=== PATIENT | male | born 1985 | race Caucasian/White ===

== ENCOUNTER → 2016-11-01 | Outpatient (CLI) | payer OTHER ==
--- NOTE | 2016-11-02 16:09 | DIAGNOSTIC IMAGING REPORT ---
CT OF THE SINUSES WITHOUT CONTRAST FUSION PROTOCOL CLINICAL HISTORY: Chronic sinusitis. Left middle turbinate polyposis. Right septal deviation. COMPARISON STUDY: No previous studies for comparison. TECHNIQUE: Axial images of the sinuses were obtained without IV contrast according to the Fusion protocol. Sagittal and coronal reconstructions were viewed. FINDINGS: Visualized portions of the intracranial contents are unremarkable on this unenhanced exam. Orbits are within normal limits. Cribriform plate is intact. Note is made of mild rightward deviation of the nasal septum. There is moderate polypoid mucosal thickening within the nasal cavity as well as the left maxillary sinus. Hyperdense secretions within the left maxillary sinus are present. There is mild mucosal thickening of the left frontal and ethmoid sinuses. Nodularity is most pronounced along the left middle turbinate with bony remodeling. There is a darien bullosa of the right middle turbinate. There is significant thinning of the bony nasal septum with possible defect. The left ostiomeatal complex is occluded. The right is patent. IMPRESSION: 1. Moderate polypoid mucosal thickening of the nasal cavity and sinuses, most evident along the left middle turbinate with bony irregularity. The findings favor sinonasal polyposis. Other etiologies such as Juan's granulomatosis could appear similar although is considered less likely. 2. Significant thinning of the bony nasal septum with possible defect. 3. Mild rightward deviation of the nasal septum. 4. Occluded left ostiomeatal complex. Electronically signed by: Jack De León M.D. 11/02/2016 4:08 PM Dictated Date/Time: 11/01/2016 3:24 PM
== END | disposition home or self-care (01) ==
LOC: C.CTS 15:03
DX: J32.9 Chronic sinusitis, unspecified (principal); J34.89 Other specified disorders of nose and nasal sinuses; J34.2 Deviated nasal septum

== ENCOUNTER → 2016-12-09 | Outpatient (CLI) | payer OTHER ==
--- NOTE | 2016-12-10 06:25 | SPLIT NIGHT TECHNICIAN REPORT ---
[facility] Split Night Polysomnogram - Last Code Striper Report Study date: 12/09/2016 Referring Physician: Foster Bagley MD Name: MADISONBREEZY JUAREZ Last Code Striper: Bre Box [facility] [email or web address] Date of : 1985 Height: 31 years, Height 6' 0" Sex: Male Weight: 213 lbs Age: 31 BMI: Medications: 28.88 Patient History 31 yr. old male here for a possible split night sleep study. Patient complains on loud snoring. He has significant tonsillar hypertrophy, right septal deviation and turbinate hypertrophy. Patients [place] sleepiness scale score is between 8 and 14out of 24. Parameters Monitored NPSG: E1-M2, E2-M1, Fp1-M2, Fp2-M1, F3-M2, F4-M2, F4-M1, C3-M2, C4-M2, C4-M1, O1-M2, O2-M2, O2-M1, T3-M2, T4-M1, P3-M2, P4-M1, CHIN1, CHIN2, HR, EKG, Legs, PFLOW, SNOR, FLOW, CFLOW, Tidal Volume, THOR, ABDO, SpO2, PLTH, CPRESS, ETCO2 Wave, ETCO2, pH SLEEP SUMMARY DATA DIAGNOSTIC TREATMENT Lights Out: 10:58:47 PM 2:05:17 AM Lights On: 2:01:17 AM 5:29:47 AM Total Recording Time (TRT): 182.5 min. 204.5 min. Total Sleep Time (TST): 117.0 min. 173.0 min. NREM Time: 93.0 min. 144.0 min. REM Time: 24.0 min. 29.0 min. Sleep Period Time (SPT): 172.0 min. 183.5 min. Sleep Efficiency (SE): 64 % 85 % Sleep Latency: 10.5 min. 11.0 min. Arousal Index: 10.3 3.8 PAP Treatment Levels: 5, 7, 9, 11 * Optimal Pressure(s) SLEEP STAGING DATA DIAGNOSTIC TREATMENT Duration (min) TST % Duration (min) TST % Stage Wake: 65.5 min. -- 31.5 min. -- WASO: 55.0 min. -- 10.5 min. -- NREM: 93.0 min. 79 % 144.0 min. 83 % Stage N1: 11.5 min. 10 % 9.5 min. 5 % Stage N2: 81.5 min. 70 % 88.5 min. 51 % Stage N3: 0.0 min. 0 % 46.0 min. 27 % REM: 24.0 min. 21 % 29.0 min. 17 % POSITIONAL DATA Event Count Index Event Count Index Supine: 0 0.0 24 32.4 Supine NREM: 0 0.0 24 32.4 Supine REM: N/A N/A N/A N/A Non-Supine: 110 57.8 24 11.2 Non-Supine NREM: 87 57.9 24 14.5 Non-Supine REM: 23 57.5 0 0.0 AROUSAL SUMMARY DATA: Event Count Index Event Count Index Apnea Arousals: 8 21.0 1 10.1 Hypopnea Arousals: 4 2.1 4 1.4 Snore Arousals: 8 4.1 2 0.7 PLM Arousals: 0 0.0 3 1.0 Non-Specific Arousals: 2 1.0 2 0.7 Total Arousals: 20 10.3 11 3.8 MYOCLONUS (PLM) Event Count Index Event Count Index PLM: 0 0.0 33 11.4 PLM AROUSAL: 0 0.0 3 1.0 PLM W/O AROUSAL 0 0.0 30 10.4 PLM W/RESP EVENT 0 0.0 0 0.0 MYOCLONUS (PLM) Event Count Index Event Count Index LM: 0 1.5 16 5.5 LM AROUSAL: 0 0.0 2 0.7 LM W/O AROUSAL LM W/RESP EVENT LM NON SPECIFIC 1 0.5 44 15.3 HEART RATE DATA DIAGNOSTIC TREATMENT Sleep (bpm): 65 68 REM (bpm): 87 95 NREM (bpm): 92 94 Tachycardia Count: 0 0 Tachycardia Duration: 0.00 0 Bradycardia Count: 0 0 Bradycardia Duration: 0.00 0 DIAGNOSTIC PORTION TREATMENT PORTION RESPIRATORY DATA Event Count Index Event Count Index AHI: -- 56.4 -- 16.6 RDI: -- 56.4 -- 17 Obstructive Apnea: 26 13.3 29 10.1 Central Apnea: 1 0.5 0 0.0 Mixed Apnea: 14 7.2 0 0.0 Hypopnea: 69 35.4 19 6.6 RERA: 0 0.0 0 0.0 Total Apneas: 41 21.0 29 10.1 RESPIRATORY DATA REM NREM SLEEP REM NREM SLEEP Supine Position: Obstructive Apneas: N/A 0 0 N/A 15 15 Central Apneas: N/A 0 0 N/A 0 0 Mixed Apneas: N/A 0 0 N/A 0 0 Hypopneas: N/A 0 0 N/A 9 9 RERA N/A 0 0 N/A 0 0 Total Supine Events: N/A 0 0 N/A 24 24 Supine AHI: N/A 0.0 0.0 N/A 32.4 32.4 Supine RDI: N/A 0.0 0.0 N/A 32.4 32.4 REM NREM SLEEP REM NREM SLEEP Non-Supine Position: Obstructive Apneas: 7 19 26 0 14 14 Central Apneas: 0 1 1 0 0 0 Mixed Apneas: 1 13 14 0 0 0 Hypopneas: 15 54 69 0 10 10 RERA 0 0 0 0 0 0 Total Supine Events: 23 87 110 0 24 24 Supine AHI: 57.5 57.9 57.8 0.0 14.5 11.2 Supine RDI: 57.5 57.9 57.8 0.0 14.5 11.2 OXYGEN DESTAURATION DATA: Event Count Index Event Count Index REM Desaturations: 18 45.0 0 0.0 NREM Desaturations: 82 52.9 42 17.5 SNORE DATA DIAGNOSTIC TREATMENT Snore Time: 5.5 2:16:17 AM Snore TST%: 5 6 Snore Arousal Count: 8 2 Snore Arousal Index: 4.1 0.7 Desaturation Event Summary: Minimum %SpO2 Event Count Mean/Min/Max Duration(sec.) Desaturation Index % Time In Bed > 90 146 29.5 / 10.8 / 59.0 26.0 87.1 86 - 90 2 13.5 / 9.3 / 17.8 3.1 10.1 81 - 85 0 N/A 0.0 1.7 76 - 80 0 N/A 0.0 0.8 71 - 75 0 N/A 0.0 0.2 66 - 70 0 N/A 0.0 0.1 61 - 65 0 N/A 0.0 0.0 56 - 60 0 N/A 0.0 0.0 51 - 55 0 N/A 0.0 0.0 < 50 0 N/A 0.0 0.0 OXYGEN SATURATION DATA DIAGNOSTIC TREATMENT SpO2 Mean Sleep: 91 % 94 % SpO2 Mean REM: 87 % 95 % SpO2 Mean NREM: 92 % 94 % SpO2 Minimum Sleep: 69 % 89 % SpO2 Minimum REM: 69 % 93 % SpO2 Minimum NREM: 83 % 89 % Time Below 90% (TST): 32.4 1.1 Time Below 88% (TST): 15.9 0.0 Total REM NREM Awake <50% 0.0 min. 0.0 min. 0.0 min. 0.0 min. 51 - 60% 0.0 min. 0.0 min. 0.0 min. 0.0 min. 61 - 70% 0.3 min. 0.3 min. 0.0 min. 0.0 min. 71 - 80% 4.1 min. 4.1 min. 0.0 min. 0.0 min. 81 - 90% 45.5 min. 9.4 min. 33.5 min. 2.6 min. 91 - 100% 336.9 min. 39.2 min. 203.5 min. 94.2 min. Average 93 92 93 94 Minimum SpO2 69 69 83 83 Desaturation Event Index 22.8 20.4 31.4 4.9 # Desat. Events below 89% 66 18 46 2 Time(%) with Saturation below 89% 6.1 3.0 2.8 0.3 Time(min.) with Saturation below 89% 23.8 11.6 11.0 1.2 Recording Last Code Striper Comments: Mr. Quinn slept in the right, left, and supine positions. No cardiac arrhythmia or PLMs noted. No bruxism noted. Snoring was noted and scored as a 4 on a scale of 0 through 5. (0=no snoring, 5=snoring loud enough to be heard through a closed door or down the becerra way) At 2:05 am ,Mr. Quinn met specific Split-Night criteria during the diagnostic portion of this study. CPAP was initiated at +5 CMH2O room air and up-titrated to an optimal level of + 11 CMH2O Cflex 2, which nearly eliminated all respiratory events and snoring. A large [employer] Simplus was used during titration. Mr. Quinn did not wake to use the restroom during the night. Mr. Quinn stated,I did not sleep with the mask on. The final report will be interpreted and signed by a sleep physician. The completed physician report will then be placed in the patient medical record. Therapy Event: Therapy (cm H20) 0 5 7 9 11 Total Time at Pressure (min.) 182.5 20.3 11.4 18.1 154.7 TST at Pressure (min.) 117.0 8.3 10.9 16.6 137.2 # Periods 1 1 1 1 1 Sleep Onset (min.) 10.5 11.0 0.0 0.0 0.0 REM Onset (min.) 157.5 N/A N/A N/A 39.7 Sleep Efficiency % 64 40 95 91 88 Wakefulness (%) 35.9 59.2 4.4 8.3 11.3 Wakefulness (min.) 65.5 12.0 0.5 1.5 17.5 NREM 1 (%) 6.3 24.7 0.0 5.5 2.3 NREM 1 (min.) 11.5 5.0 0.0 1.0 3.5 NREM 2 (%) 44.7 16.1 95.6 86.2 38.0 NREM 2 (min.) 81.5 3.3 10.9 15.6 58.7 NREM 3 (%) 0.0 0.0 0.0 0.0 29.7 NREM 3 (min.) 0.0 0.0 0.0 0.0 46.0 REM (%) 13.2 0.0 0.0 0.0 18.7 REM (min.) 24.0 0.0 0.0 0.0 29.0 # Arousals 20 2 0 3 6 Arousal Index 10.3 14.5 0.0 10.8 2.6 # Snore 289 2 17 78 304 Snore Index 148.2 14.5 93.7 281.8 132.9 AHI 56.4 36.3 88.2 90.3 0.9 AHI Supine 0.0 N/A N/A 95.9 3.9 AHI Non-Supine 57.8 36.3 88.2 63.2 0.0 NREM AHI 56.1 36.3 88.2 90.3 1.1 REM AHI 57.5 N/A N/A N/A 0.0 RDI 56.4 36.3 88.2 90.3 0.9 # Obstructive 26 3 11 15 0 # Central Ap 1 0 0 0 0 # Mixed 14 0 0 0 0 # Hypopneas 69 2 5 10 2 RERAS 0 0 0 0 0 Total Respiratory Events 110 5 16 25 2 Time Below SpO2 89.00% (min.) 22.6 0.0 0.0 0.0 0.0 Mean NREM SpO2 (%) 92 94 93 93 95 Mean REM SpO2 (%) 87 N/A N/A N/A 95 Mean Sleep SpO2 (%) 91 94 93 93 95 Min NREM SpO2 (%) 83 90 89 89 91 Min REM SpO2 (%) 69 N/A N/A N/A 93 Position Supine (min.) 2.9 0.0 0.0 13.8 30.7 Position Non-supine (min.) 114.1 8.3 10.9 2.8 106.5 LM Index Sleep 1.5 0.0 5.5 7.2 20.1 LM Index NREM 0.6 0.0 5.5 7.2 23.8 LM Index REM 5.0 N/A N/A N/A 6.2 Mean Heart Rate (bpm) 65 65 65 64 69 Min Heart Rate (bpm) 58 61 60 59 58
--- NOTE | 2016-12-17 14:50 | POLYSOMNOGRAPH REPORT ---
CLINICAL DATA: The patient is a 31-year-old male who has a BMI of 28.88. His complaints were those of loud snoring, headaches, and excessive daytime somnolence. His [place] sleepiness scale score is between 8 and 13 out of a possible 24. An in-lab split night study was done. SLEEP ARCHITECTURE: During the diagnostic portion of the study, the sleep period time was 172.0 minutes. The total sleep time was 117 minutes. The sleep efficiency was moderately reduced to 64%. The sleep latency was normal at 10.5 minutes. The arousal index was 10.3. Sleep consisted of stage N1 10%, stage N2 70%, stage REM 21%. During the therapeutic portion of the study when the patient was treated with nasal CPAP, the total sleep period was 183.5 minutes and the total sleep time was 173.0 minutes. The sleep efficiency was 85%. The sleep latency was 11 minutes. The arousal index was decreased to 3.8. During the therapeutic portion of the study, sleep consisted of stage N1 5%, stage N2 51%, stage N3 27%, and stage REM 17%. AROUSAL DATA: During the diagnostic portion of the study, the patient had 20 arousals including 8 apnea arousals, 4 hypopnea arousals, 8 snoring arousals, and 2 nonspecific arousals. The arousal index was 10.3 events per hour. During the therapeutic portion of the study, the patient had 11 arousals including 1 apnea arousal, 4 hypopnea arousals, 2 snoring arousals, 3 PLM arousals, and 2 nonspecific arousals. The arousal index was 3.8. PLM DATA: During the diagnostic portion of the study, the patient had no periodic limb movements. During the therapeutic portion, he had a total of 33 periodic limb movements for an index of 11.4. Three of these had arousals for a PLM arousal index of 1.0. EKG: The underlying cardiac rhythm was normal sinus. The cardiac rates ranged from 65-94 beats per minute. No arrhythmias were noted. RESPIRATORY DATA: During the diagnostic portion of the study, the patient had a total of 41 apneas including 26 obstructive apneas, 1 central apnea, and 14 mixed apneas. In addition, he had 69 hypopneas utilizing the 4% rule for scoring. The apnea hypopnea index was severely elevated at 56.4 events per hour and was consistent with severe sleep apnea. During the therapeutic portion of the study when the patient was treated with nasal CPAP, he had a total of 29 obstructive apneas and 19 hypopneas. The apnea hypopnea index was 16.6 events per hour. It is notable that at the final pressure of 11 cm, the patient was treated for a total of 154.7 minutes and he had an apnea hypopnea index of only 0.9 events per hour. OXIMETRY DATA: During the diagnostic portion of the study, the mean saturation was 91%. The minimum saturation was 69%. 15.9% was less than 88%. During the therapeutic portion of the study, the mean saturation was 94%. The minimum saturation was 89%. There was 0% less than 88%. MACHINE WASHER'S COMMENTS: The patient slept in the right, left, and supine positions. No cardiac arrhythmia or PLMs were noted. No bruxism noted. Snoring was noted and scored as a 4 on a scale of 0 through 5. At 2:05 a.m., Mr. Quinn met specific split night criteria during the diagnostic portion of the study. Severe sleep apnea was noted. CPAP was initiated at 5 cm of water and uptitrated to an optimal level of 11 cm water with C-Flex 2. This nearly eliminated all respiratory events and snoring. A large [employer] Simplus mask was used during the titration. IMPRESSION: Obstructive sleep apnea -- severe -- resolved with nasal CPAP at 11 cm. COMMENTS: The patient had a split study done because he had severe sleep apnea during the diagnostic portion of the study. He had a decreased sleep efficiency during the diagnostic portion with severe hypoxemia. He was treated with nasal CPAP at a final pressure of 11 cm. The patient had a significant increase in stage N3 sleep during the CPAP titration. His sleep efficiency also improved. His oxygenation normalized compared with the diagnostic study. There was good resolution of sleep disordered breathing. Somewhat surprisingly however, during the post sleep questionnaire, the patient indicated that he did not sleep with the mask on. RECOMMENDATIONS: 1. Strong consideration is given to treatment with nasal CPAP at 11 cm in light of the above results. 2. If nasal CPAP is ordered, it would be advised that he have a [employer] Simplus mask size large. 3. Followup is deferred to Dr. Foster Bagley who referred the patient. The patient is known to have tonsillar hypertrophy. Thus, the possibility of surgical therapy could be considered and is deferred to Dr. Bagley. 4. The patient could be referred for a sleep evaluation if desired. NEALD
== END | disposition home or self-care (01) ==
LOC: C.NEUR 20:00
DX: J32.9 Chronic sinusitis, unspecified (principal); J34.2 Deviated nasal septum; G47.33 Obstructive sleep apnea (adult) (pediatric); R06.83 Snoring

== ENCOUNTER 2017-03-22 10:10 | Inpatient (IN) | payer OTHER ==
[2017-02-13 12:54] LABS: BASO % 0.7 %; BASO ABS # 0.05 K/uL (0-0.2); COMPLETE YES; EOS % 6.4 %; HEMATOCRIT 44.8 % (42-52); IG% 0.1 %; LYMPH % 40.6 %; LYMPH ABS # 2.86 K/uL (1.2-3.4); MEAN CELL VOLUME 89.1 fL (80-100); MEAN CORPUSCULAR HGB CONC 34.8 g/dl (32-36); MEAN PLATELET VOLUME 11.2 fL (7.4-10.4); MONO % 9.1 %; NEUT % 43.1 %; PLATELET COUNT 186 K/uL (130-400); RED BLOOD COUNT 5.03 M/uL (4.7-6.1); WHITE BLOOD COUNT 7.04 K/uL (4.8-10.8)
[2017-03-22] VITALS (7 sets, daily range): BP systolic 112–124; BP diastolic 63–79; PULSE 66–92; TEMP 36.6–37; O2SAT 96–98; Ht 182.9 cm; Wt 101.1 kg
[~2017-03-22] VITALS: Ht 182.9 cm; Wt 101.1 kg
[~2017-03-22 10:10] MED LIST: CEFAZOLIN 2000 MG/60 ML D5W IV SCH; LACTATED RINGER'S 1000ML 1,000 ML IV SCH; OXYMETAZOLINE HCL 0.05% NA SPR 15 ML BTL NAE SCH
--- NOTE | 2017-03-22 10:35 | History and Physical ---
History & Physical Date Mar 22, 2017. Chief Complaint MIRI, CHRONIC SINUSITIS, TONSILLAR HYPERTROPHY WITH RECURRENT ACUTE TONSILLITIS AND OROPHARYNGEAL DYSPHAGIA History of Present Illness The patient is a 32 year old male with H/O SEVERE MIRI WITH AHI 56.4 WITH TONSILLAR HYPERTROPHY WITH H/O RECURRENT ACUTE TONSILLITIS AND OROPHARYNGEAL DYSPHAGIA. PT ALSO WITH CHRONIC SINUSITIS UNRESPONSIVE TO MAXIMAL MEDICAL THERAPY. PT S/P SEPTOPLASTY AND INFERIOR TURBINATE REDUCTION SURGERY IN CONCEPCION BUT CONTINUES TO HAVE R>L DNS AND B ITH. Past Medical/Surgical History PMH: SEVERE MIRI PSH: S/P CLOSED REDUCTION NASAL FX; S/P SEPTOPLASTY AND BILATERAL INFERIOR TURBINATE REDUCTION Additional History Hepatic Disease: No Endocrine Disorder: No Kidney Disease: No Hypertension: No Heart Disease: No Bleeding Tendencies: No Infectious Diseases: No Allergies Coded Allergies: Cat Dander (Verified Allergy, Unknown, HAY FEVER, EYES SWELL, 02/13/17) NO KNOWN DRUG ALLERGIES (Verified Allergy, Unknown, NKDA, 02/13/17) Home Medications No Active Prescriptions or Reported Meds Physical Examination Skin: warm/dry, no rash Eyes: normal inspection, EOMI, sclerae normal ENT: + pertinent finding (4+ TONSILS, R>L DNS, B ITH) Head: normocephalic, atraumatic Neck: supple, no adenopathy, trachea midline Respiratory/Chest: lungs clear, normal breath sounds, no respiratory distress Cardiovascular: regular rate, rhythm, no edema, no murmur Neurologic/Psych: no motor/sensory deficits, alert, normal reflexes, oriented x 3 Diagnosis MIRI, TONSILLAR HYPERTROPHY, CRS, R>L DNS, B ITH Plan of Treatment TONSILLECTOMY, IMAGE-GUIDED B FESS AND INFERIOR TURBINATE REDUCTION, POSSIBLE REVISION SEPTOPLASTY
[2017-03-22] MEDS ORDERED: MIDAZOLAM HCL 1 MG/ML 2ML VIAL ONE (12:30)
[2017-03-22] MEDS ORDERED: FENTANYL CITRATE INJ 50 MCG/1 ML 2 ML VIAL ONE ×2 (12:30→15:04)
--- NOTE | 2017-03-22 14:36 | History & Physical Bridge Note ---
H&P Re-Evaluation Bridge Note: I have examined the patient, reviewed the History & Physical and in the interval since the performance of the History & Physical I have noted the following changes of clinical significance: PATIENT HAS ELECTED TO STAGE HIS SURGERIES WITH TONSILLECTOMY ALONE TODAY FOLLOWED BY HIS SINONASAL SURGERY IN ~ 6 WEEKS. WILL STILL WATCH OVERNIGHT DUE TO SEVERE MIRI.
[2017-03-22] MEDS ORDERED: BACITRACIN OINT 15 GM TUBE ONE (14:40)
[2017-03-22] MEDS ORDERED: LIDOCAINE HCL 2% JELLY 30 ML TUBE EXT ONE (14:46)
[2017-03-22] MEDS ORDERED: SUCCINYLCHOLINE CHLORIDE 20 MG/ML 10 ML VIAL IV ONE (15:12)
[2017-03-22] MEDS ORDERED: PROPOFOL IV EMULSION 10 MG/ML 20 ML VIAL IV ONE (15:12)
[2017-03-22] MEDS ORDERED: ONDANSETRON INJ 2 MG/ML 2 ML VIAL ONE (15:12)
[2017-03-22] MEDS ORDERED: ROCURONIUM BROMIDE 10 MG/ML 5 ML VIAL ONE (15:12)
[2017-03-22] MEDS ORDERED: LIDOCAINE HCL 2% 2 ML VIAL (20MG/ML) ONE (15:12)
[2017-03-22] MEDS ORDERED: NEOSTIGMINE METHYLSULFATE 5 MG/5 ML SYR ONE (15:12)
[2017-03-22] MEDS ORDERED: DEXAMETHASONE SOD INJ 4 MG/ML VIAL ONE (15:12)
[2017-03-22] MEDS ORDERED: GLYCOPYRROLATE INJ 0.2 MG/ML VIAL ONE (15:12)
[2017-03-22] MEDS ORDERED: LIDOCAINE VISCOUS 2% 100ML TOP ONE (15:24)
[2017-03-22] MEDS ORDERED: EpHEDrine SULFATE INJ 50 MG/ML AMP IV PRN (15:30)
[2017-03-22] MEDS ORDERED: ATROPINE SULFATE 0.1 MG/ML 5ML SYR IV PRN (15:30)
[2017-03-22] MEDS ORDERED: ONDANSETRON INJ 2 MG/ML 2 ML VIAL IV PRN ×2 (15:30→15:45)
[2017-03-22] MEDS ORDERED: FENTANYL CITRATE INJ 50 MCG/1 ML 2 ML VIAL IV PRN (15:30)
[2017-03-22] MEDS ORDERED: PROMETHAZINE HCL INJ 6.25 MG in SODIUM CHLORIDE 0.9% 50ML 50 ML IV PRN (15:30)
[2017-03-22] MEDS ORDERED: LACTATED RINGER'S 1000ML 1,000 ML IV SCH (15:33)
--- NOTE | 2017-03-22 15:39 | Discharge Instructions ---
Discharge Instructions Date of Service Mar 22, 2017. Admission Reason for Admission: Henry, Tonsillar Hypertrophy, Septal Deviation, Hype Discharge Discharge Diagnosis / Problem: SAME Discharge Goals Goal(s): Therapeutic intervention Activity Recommendations Activity Limitations: as noted below 1. LIGHT ACTIVITY FOR 2 WEEKS 2. NO DRIVING WHILE ON LORTAB 3. NO LIFTING > OR 15LBS FOR 2 WEEKS . Current Hospital Diet Patient's current hospital diet: Full Liquid Diet Discharge Diet Recommended Diet: Full Liquid Diet Diet Texture: Mechanical Soft (ground) Procedures Procedures Performed: Tonsillectomy Pending Studies Studies pending at discharge: no Medical Emergencies . Who to Call and When: Medical Emergencies: If at any time you feel your situation is an emergency, please call 911 immediately. . Non-Emergent Contact Non-Emergency issues call your: Surgeon . . "Provider Documentation" section prepared by Foster Bagley. . VTE Core Measure Inpt VTE Proph given/why not?: SCD's
--- NOTE | 2017-03-22 15:53 | [facility] Operative Report ---
Operative Report Operative Date Mar 22, 2017. Pre-Operative Diagnosis Obstructive Sleep Apnea, Tonsillar Hyperthrophy Post-Operative Diagnosis Same as preoperative diagnosis Procedure(s) Performed Tonsillectomy Surgeon Dr. Bagley Group Exercise Class Instructor Surgeon(s) None Estimated Blood Loss 5ml Findings 1. 4+ hypertrophied tonsils with very narrowed oropharyngeal airway as a result Specimens a. right tonsil collected at 1519 b. left tonsil collected at 1526 Anesthesia Gen. endotracheal Complication(s) None Disposition Recovery Room / PACU Indications The patient is a very pleasant 32-year-old male with a history of severe obstructive sleep apnea with apnea-hypopnea index of 56. He also has a history of recurrent acute tonsillitis. He had 4+ tonsil hypertrophy on physical examination with a narrowed oropharyngeal airway. In addition the patient has had problems with chronic rhinosinusitis and nasal airway obstruction. Originally he was scheduled to undergo image guided bilateral endoscopic sinus surgery, bilateral inferior turbinate reduction, possible revision septoplasty, and tonsillectomy; however, after careful discussion with the patient today we have both decided to stage his procedures and perform his tonsillectomy today and has sinonasal surgery in the near future. Description of Procedure After informed consent had been obtained from the patient, the patient was wheeled to the operating room and placed on the operating room table in supine position. Monitors were placed at after the induction of general endotracheal anesthesia, the table was turned 90 and the patient's head and neck were gently extended. Antibiotic ointment was applied to the lips and a mouthgag was carefully inserted, opened, and stabilized on a roll of towels. The palate was inspected and this was found to be normal. An Allis clamp was then used to grasp the right tonsil and the superior pole and Bovie electrocautery was used to remove the tonsil in the capsular plane with care to preserve the underlying mucosa and musculature of the anterior and posterior tonsillar pillars. Tonsil was then removed in a similar fashion. Intraoperative findings were 4+ tonsils with some tonsillith formation bilaterally. Of note there is also narrowed oropharyngeal airway which was markedly improved after the tonsillectomy. The tonsils were sent separately for permanent pathological assessment. The mouth gag was released for 1 minute. This was reopened and hemostasis was confirmed. An orogastric tube was placed and the stomach was suctioned free of air and stomach contents. 2% lidocaine jelly was placed into the bilateral tonsillar fossae for added anesthetic effect. This marked the end of the case. The patient tolerated the procedure well and there are no apparent complications. The patient was extubated and transferred to the recovery room in stable condition. I attest to the content of the Intraoperative Record and any orders documented therein. Any exceptions are noted below.
--- NOTE | 2017-03-22 16:45 | Anesthesiology Progress Note ---
Anesthesia Post Op Note Date & Time Mar 22, 2017 at 16:45 Vital Signs Pain Intensity: 0 Vital Signs Past 12 Hours Date Time Temp Pulse Resp B/P (MAP) Pulse Ox O2 Delivery O2 Flow Rate FiO2 03/22/17 16:27 63 9 125/77 94 03/22/17 16:27 63 9 03/22/17 16:22 60 6 03/22/17 16:22 60 6 98 03/22/17 16:21 121/83 03/22/17 16:17 60 12 03/22/17 16:17 60 12 98 03/22/17 16:16 125/79 03/22/17 16:12 60 8 99 03/22/17 16:12 60 8 03/22/17 16:11 127/80 03/22/17 16:07 66 12 100 03/22/17 16:07 66 12 03/22/17 16:06 127/84 03/22/17 16:02 66 11 03/22/17 16:02 65 11 100 03/22/17 16:01 128/88 03/22/17 16:01 128/88 03/22/17 16:00 65 11 03/22/17 16:00 68 11 96 03/22/17 16:00 68 11 96 03/22/17 16:00 65 11 03/22/17 15:57 124/85 03/22/17 15:57 124/85 03/22/17 15:55 66 11 03/22/17 15:55 67 11 100 03/22/17 15:55 67 11 100 03/22/17 15:55 66 11 03/22/17 15:54 36.1 71 16 132/86 99 Mask 10 03/22/17 15:51 135/89 03/22/17 15:51 135/89 03/22/17 15:50 75 16 100 03/22/17 15:50 75 16 100 03/22/17 15:50 76 16 03/22/17 15:50 76 16 03/22/17 15:46 132/86 03/22/17 15:46 132/86 03/22/17 15:45 78 6 03/22/17 15:45 78 6 99 03/22/17 15:45 78 6 99 03/22/17 15:45 78 6 03/22/17 10:49 36.6 84 20 124/63 (83) 97 Room Air Notes Mental Status: alert / awake / arousable, participated in evaluation Pt Amnestic to Procedure: Yes Nausea / Vomiting: adequately controlled Pain: adequately controlled Airway Patency, RR, SpO2: stable & adequate BP & HR: stable & adequate Hydration State: stable & adequate Anesthetic Complications: no major complications apparent
[2017-03-22] MEDS: ACETAMINOPHEN/HYDROCODONE ELIX 15 ML/CUP UDP PO PRN ×2 (19:15→23:18)
[2017-03-22] MEDS: AMOXICILLIN 500 MG/10 ML UDP PO SCH (21:38)
[2017-03-22] MEDS: DEXAMETHASONE INJ 10 MG in SYRINGE 0 ML IV SCH (21:39)
[2017-03-23] MEDS ORDERED: NURSING VERBAL MED ORDER ONE (01:45)
[2017-03-23] MEDS: ACETAMINOPHEN/HYDROCODONE ELIX 15 ML/CUP UDP PO PRN ×2 (03:30→08:25)
[2017-03-23 03:31] VITALS: BP 112/71; PULSE 87; TEMP 36.9; O2SAT 96
--- NOTE | 2017-03-23 05:20 | Discharge Summary ---
Discharge Summary Date of Service Mar 23, 2017. Discharge Summary Date of admission: 03/22/2017 Date of discharge: 03/23/2017 Admission diagnosis: Severe obstructive sleep apnea with tonsillar hypertrophy and recurrent acute tonsillitis with oropharyngeal dysphagia Discharge diagnosis: Same as above Hospital course: The patient is a pleasant 32-year-old male with a history of severe obstructive sleep apnea with an apnea hypotony index of 56.4 along with tonsillar hypertrophy and recurrent acute tonsillitis with oropharyngeal dysphagia. In addition the patient has chronic sinusitis, right greater than left septal deviation, and bilateral inferior turbinate hypertrophy despite having sinonasal surgery several times in his [place] of [facility]. Initially he was set up for tonsillectomy as well as image guided sinus surgery, revision septoplasty, and inferior turbinate reduction; however, the patient decided to undergo tonsillectomy alone and have his sinonasal surgery done at a later date. On 03/22/2017 he underwent tonsillectomy with intraoperative findings of 4+ tonsils bilaterally with significant oropharyngeal airway narrowing due to the tonsillar hypertrophy. Postoperatively he did very well. He was discharged home on postoperative day # 1 on the following medications: 1. Lortab 7.5 mg/325 mg/15 mL - 5-15 mL by mouth every 4 hours when necessary severe pain with 500 mL given, 2. Amoxicillin 400 mg/5 mL's - 10 mL's by mouth twice a day for 10 days, 3. Orapred 15 mg per 5 mL - 10 mL's by mouth twice a day for 5 days, then 5 mL by mouth twice a day for 2 days, then 5 mL by mouth daily for 2 days. He is to be on a soft diet for 2 weeks. He is to observe light activity for [address] weeks[address] not drive while on narcotics. Follow-up in the office in 1-2 weeks' time. We will schedule his sinonasal surgery sometime after 6 weeks recovery period.
--- NOTE | 2017-03-23 05:22 | Progress Note ---
Progress Note Date of Service Mar 23, 2017. Progress Note Patient is postoperative day #1 status post tonsillectomy with intraoperative findings of 4+ tonsils bilaterally. The patient has not had any postoperative problems. He has expected postoperative pain which is controlled on Lortab. Has not had any postoperative bleeding. On physical examination the patient is afebrile with vital signs are stable. Oral cavity and oropharyngeal examination reveals expected mild uvular edema and there is no evidence of bleeding within the tonsillar fossae. Patient is postoperative day #1 status post tonsillectomy for severe obstructive sleep apnea, recurrent acute tonsillitis, and oropharyngeal dysphagia. He'll be discharged this morning on a soft diet for 2 weeks and light activity for 2 weeks. He should follow up in 1-2 weeks' time in my office.
[2017-03-23] MEDS: DEXAMETHASONE INJ 10 MG in SYRINGE 0 ML IV SCH (05:46)
[2017-03-23] MEDS: AMOXICILLIN 500 MG/10 ML UDP PO SCH (05:46)
[2017-03-23 06:07] VITALS: BP 112/71; PULSE 87; TEMP 36.9; O2SAT 96
[2017-03-23 07:48] VITALS: BP 116/72; PULSE 84; TEMP 37.1; O2SAT 93
[2017-03-23 07:50] VITALS: O2SAT 93
--- NOTE | 2017-03-23 07:57 | Anesthesiology Progress Note ---
Anesthesia Post Op Note Date & Time Mar 23, 2017 at 07:57 Vital Signs Vital Signs Past 12 Hours Date Time Temp Pulse Resp B/P (MAP) Pulse Ox O2 Delivery O2 Flow Rate FiO2 03/23/17 07:50 93 Room Air 03/23/17 07:48 37.1 84 18 116/72 (87) 93 Room Air 03/23/17 06:07 36.9 87 17 96 Room Air 03/23/17 03:31 36.9 87 17 112/71 (85) 96 Nasal Cannula 2.0 03/22/17 23:30 97 Nasal Cannula 2.0 03/22/17 23:00 36.8 85 18 114/70 (85) 98 Nasal Cannula 2.0 Notes Mental Status: alert / awake / arousable, participated in evaluation Anesthetic Complications: no major complications apparent
[2017-03-23] MEDS ORDERED: PNEUMOCOCCAL POLYSACCHARIDES 25 MCG/0.5 ML VIAL/SYR IM. ONE (08:00)
[2017-03-23] MEDS ORDERED: PNEUMOCOCCAL ADMINISTRATION CHARGE ONE (08:00)
== END 2017-03-23 09:10 | disposition home or self-care (01) | DRG 134 ==
LOC: C.ACU 10:10 → C.MSN 10:40 → ENRESERV 16:12
PROC: 0CTPXZZ Resection of Tonsils, External Approach (ICD-10-PCS; principal; 2017-03-22 11:45)
DX: J35.1 Hypertrophy of tonsils (principal); R13.12 Dysphagia, oropharyngeal phase; J32.9 Chronic sinusitis, unspecified; G47.33 Obstructive sleep apnea (adult) (pediatric); I34.1 Nonrheumatic mitral (valve) prolapse; F17.210 Nicotine dependence, cigarettes, uncomplicated; E66.9 Obesity, unspecified; Z68.30 Body mass index [BMI] 30.0-30.9, adult

== ENCOUNTER → 2017-12-06 | Outpatient (CLI) | payer OTHER ==
--- NOTE | 2017-12-06 13:06 | DIAGNOSTIC IMAGING REPORT ---
CHEST 2 VIEWS ROUTINE CLINICAL HISTORY: Preoperative evaluation. COMPARISON STUDY: No previous studies for comparison. FINDINGS: Lung volumes are normal. No pneumothorax or pleural effusion is noted. Cardiac size is normal. Mediastinal contours are normal. There is no evidence for pulmonary edema. IMPRESSION: No acute cardiopulmonary findings. Electronically signed by: Jack De León M.D. 12/06/2017 1:05 PM Dictated Date/Time: 12/06/2017 1:04 PM
[2017-12-06 13:22] LABS: BASO % 0.4 %; BASO ABS # 0.03 K/uL (0-0.2); EOS % 2.6 %; EOS ABS # 0.19 K/uL (0-0.5); HEMATOCRIT 45.1 % (42-52); HEMOGLOBIN 15.8 g/dL (14.0-18.0); IG# 0.01 K/uL (0.00-0.02); LYMPH % 40.9 %; LYMPH ABS # 2.98 K/uL (1.2-3.4); MEAN CELL VOLUME 90.9 fL (80-100); MEAN CORPUSCULAR HEMOGLOBIN 31.9 pg (25-34); MEAN PLATELET VOLUME 11.3 fL (7.4-10.4); MONO % 8.2 %; NEUT % 47.8 %; NEUT ABS # 3.48 K/uL (1.4-6.5); PLATELET COUNT 201 K/uL (130-400); RED CELL DISTRIBUTION WIDTH CV 13.1 % (11.5-14.5); RED CELL DISTRIBUTION WIDTH SD 43.1 fL (36.4-46.3); WHITE BLOOD COUNT 7.29 K/uL (4.8-10.8)
[2017-12-06 13:34] LABS: PTT PATIENT 23.7 SECONDS (21.0-31.0)
[2017-12-06 13:50] LABS: POTASSIUM 3.6 mmol/L (3.5-5.1)
== END | disposition home or self-care (01) ==
LOC: C.RAD 12:31
DX: Z01.818 Encounter for other preprocedural examination (principal)

== ENCOUNTER → 2017-12-15 | Day surgery (SDC) | payer OTHER ==
[2017-08-08 10:48] VITALS: Ht 182.9 cm; Wt 100.0 kg
[~2017-12-15] VITALS: Ht 182.9 cm; Wt 100.0 kg
[~2017-12-15] MED LIST changes: +ATROPINE SULFATE 0.1 MG/ML 5ML SYR IV PRN; -CEFAZOLIN 2000 MG/60 ML D5W IV SCH; +CEFAZOLIN 2000MG IV PUSH 10 ML IV SCH; +CEFAZOLIN 2000MG IV PUSH 15 ML IV SCH; +DEXAMETHASONE SOD INJ 4 MG/ML VIAL ONE; +EpHEDrine SULFATE INJ 50 MG/ML AMP IV PRN; +EpINEphrine INJ 1MG/ML AMP 1 MG/ML AMP ONE; +FENTANYL CITRATE INJ 50 MCG/1 ML 2 ML VIAL IV PRN; +FENTANYL CITRATE INJ 50 MCG/1 ML 2 ML VIAL ONE; +GLYCOPYRROLATE INJ 0.2 MG/ML VIAL ONE; +HYDROCODONE/ACETAMIN 5/325MG TAB PO PRN; +LIDOCAINE 4% MPF SOAK 5 ML = 1 DOSE TOP ONE; +LIDOCAINE HCL 2% 2 ML VIAL (20MG/ML) ONE; +LIDOCAINE/EPINEPHRINE 1% 20 ML VIAL ONE; +MIDAZOLAM HCL 1 MG/ML 2ML VIAL ONE; +NEOSTIGMINE METHYLSULFATE 5 MG/5 ML SYR ONE; +ONDANSETRON INJ 2 MG/ML 2 ML VIAL IV PRN; +ONDANSETRON INJ 2 MG/ML 2 ML VIAL ONE; +OXYMETAZOLINE HCL 0.05% NA SPR 15 ML BTL PRN; +OXYMETAZOLINE HCL 0.05% NA SPR 15 ML BTL SCH; +PROPOFOL IV EMULSION 10 MG/ML 20 ML VIAL IV ONE; +ROCURONIUM BROMIDE 10 MG/ML 5 ML VIAL IV ONE; +SCOPOLAMINE 1.5 MG TDSY TD ONE; +TRIAMCINOLONE ACET 40 MG/ML VIAL ONE
--- NOTE | 2017-12-15 12:08 | History and Physical: Surg Cnt ---
History & Physical Date Dec 15, 2017. Chief Complaint CHRONIC SINUSITIS History of Present Illness The patient is a 32 year old male with complaints of CHRONIC SINUSITIS, NASAL OBSTRUCTION DESPITE MAXIMAL MEDICAL RX. Past Medical/Surgical History PMH: ABOVE PSH: S/P TONSILLECTOMY WITH RESOLUTION OF SEVERE MIRI AFTERWARDS CONFIRMED ON SLEEP STUDY; S/P CLOSED REDUCTION NASAL FX AND POSSIBLY B FESS/SEPTOPLASTY BY ANOTHER ENT SURGEON Additional History Hepatic Disease: No Endocrine Disorder: No Kidney Disease: No Hypertension: No Heart Disease: No Bleeding Tendencies: No Infectious Diseases: No Allergies Coded Allergies: Cat Dander (Verified Allergy, Unknown, HAY FEVER, EYES SWELL, 12/15/17) NO KNOWN DRUG ALLERGIES (Verified Allergy, Unknown, ., 12/15/17) Home Medications No Active Prescriptions or Reported Meds Physical Examination Skin: warm/dry, no rash Eyes: normal inspection, EOMI, sclerae normal ENT: + pertinent finding (R>L DNS, L>R ITH, POLYPOID L MT) Head: normocephalic, atraumatic Neck: supple, no adenopathy, trachea midline Respiratory/Chest: lungs clear, normal breath sounds, no respiratory distress Cardiovascular: regular rate, rhythm, no edema, no murmur Neurologic/Psych: no motor/sensory deficits, alert, normal reflexes, oriented x 3 Diagnosis CHRONIC SINUSITIS, SEPTAL DEVIATION, BILATERAL INFERIOR TURBINATE HYPERTROPHY Plan of Treatment IMAGE-GUIDED B FESS AND INFERIOR TURBINATE REDUCTION, SEPTOPLASTY
--- NOTE | 2017-12-15 13:20 | [facility] Operative Report ---
Operative Report Operative Date Dec 15, 2017. Pre-Operative Diagnosis Chronic Sinusitis, Inferior Turbinate Hypertrophy, SEPTAL DEVIATION Post-Operative Diagnosis Same Procedure(s) Performed Image Guided Bilateral Endoscopic Sinus Surgery, Septoplasty, Bilateral Inferior Turbinate Reduction Surgeon Dr. Bagley Health Promotion Officer Surgeon(s) None Estimated Blood Loss 25ML Findings 1. L>R MIDDLE TURBINATE POLYPOSIS 2. MODERATE R DNS 3. B ITH 4. MILD MUCOSAL THICKENING B MAX AND ETHMOID SINUSES WELL L FRONTAL SINUSES Specimens A. Left Middle Turbinate Mass Anesthesia Type General I attest to the content of the Intraoperative Record and any orders documented therein. Any exceptions are noted below.
--- NOTE | 2017-12-15 13:21 | Discharge Instructions ---
Discharge Instructions Date of Service Dec 15, 2017. Admission Reason for Admission: Chronic Sinusitis, Deviated Nasal Septum, Hypertro Discharge Discharge Diagnosis / Problem: SAME Discharge Goals Goal(s): Therapeutic intervention Activity Recommendations Activity Limitations: as noted below LIGHT ACTIVITY AND NO NOSE BLOWING FOR 2 WEEKS; NO DRIVING WHILE ON NORCO . Current Hospital Diet Patient's current hospital diet: Discharge Diet Recommended Diet: Regular Diet Procedures Procedures Performed: Image Guided Bilateral Endoscopic Sinus Surgery, Septoplasty, Bilateral Inferior Turbinate Reduction Pending Studies Studies pending at discharge: no Medical Emergencies . Who to Call and When: Medical Emergencies: If at any time you feel your situation is an emergency, please call 911 immediately. . Non-Emergent Contact Non-Emergency issues call your: Surgeon . . "Provider Documentation" section prepared by Foster Bagley. .
[2017-12-15 14:15] VITALS: TEMP 36.7
--- NOTE | 2017-12-15 14:31 | Anesthesia Progress Nt - [facility] ---
Anesthesia Post Op Note Date & Time Dec 15, 2017 at 14:31 Vital Signs Pain Intensity: 0 Vital Signs Past 12 Hours Date Time Temp Pulse Resp B/P (MAP) Pulse Ox O2 Delivery O2 Flow Rate FiO2 12/15/17 14:15 36.7 78 18 138/81 (100) 98 Room Air 12/15/17 14:10 120/69 12/15/17 14:07 71 16 95 12/15/17 14:07 72 16 12/15/17 14:06 77 14 115/67 97 12/15/17 14:06 37.0 73 16 115/67 96 Room Air 12/15/17 14:06 76 14 12/15/17 14:01 69 15 98 12/15/17 14:01 69 15 12/15/17 14:00 120/68 12/15/17 13:56 77 15 12/15/17 13:56 78 15 97 12/15/17 13:55 114/66 12/15/17 13:54 75 9 95 12/15/17 13:54 75 9 12/15/17 13:50 120/55 12/15/17 13:49 68 10 12/15/17 13:49 68 10 97 12/15/17 13:45 112/60 12/15/17 13:44 71 10 12/15/17 13:44 71 10 98 12/15/17 13:40 114/54 12/15/17 13:39 74 4 98 12/15/17 13:39 73 4 12/15/17 13:36 115/61 12/15/17 13:34 80 6 12/15/17 13:34 80 6 99 12/15/17 13:33 84 14 12/15/17 13:33 84 14 99 12/15/17 13:30 119/64 12/15/17 13:28 88 12/15/17 13:28 36.7 83 16 111/67 99 Humidified Oxygen 6 Diffusion Mask 12/15/17 13:28 88 111/67 97 12/15/17 10:01 36.6 69 16 120/80 (93) 96 Room Air Notes Mental Status: alert / awake / arousable, participated in evaluation Pt Amnestic to Procedure: Yes Nausea / Vomiting: adequately controlled Pain: adequately controlled Airway Patency, RR, SpO2: stable & adequate BP & HR: stable & adequate Hydration State: stable & adequate Anesthetic Complications: no major complications apparent
[2017-12-15 14:37] VITALS: BP 122/82; PULSE 72; O2SAT 96
--- NOTE | 2017-12-15 15:13 | OPERATIVE REPORT ---
DATE OF OPERATION: 12/15/2017 PREOPERATIVE DIAGNOSES: 1. Chronic polypoid rhinosinusitis. 2. Right septal deviation. 3. Bilateral inferior turbinate hypertrophy. POSTOPERATIVE DIAGNOSES: 1. Chronic polypoid rhinosinusitis. 2. Right septal deviation. 3. Bilateral inferior turbinate hypertrophy. PROCEDURES: Image-guided bilateral endoscopic sinus surgery consisting of: 1. Bilateral endoscopic darien bullosa resection. 2. Bilateral maxillary antrostomies. 3. Bilateral complete ethmoidectomies. 4. Balloon sinuplasty-assisted left frontal sinusotomy. 5. Revision septoplasty. 6. Revision bilateral inferior turbinate reduction. SURGEON: Foster Bagley MD ANESTHESIA: General endotracheal. ESTIMATED BLOOD LOSS: 25 mL. FINDINGS: 1. Large left greater than right polypoid middle turbinates. 2. Mucosal thickening involving the bilateral maxillary, bilateral ethmoid, and left frontal sinuses. 3. Severe right septal deviation with small posterior septal perforation. 4. Severe bilateral inferior turbinate hypertrophy. SPECIMENS: Left middle turbinate for permanent pathological assessment. COMPLICATIONS: None. INDICATIONS FOR THE PROCEDURE: The patient is a 32-year-old male with a history of chronic polypoid rhinosinusitis who has undergone 2 sinonasal surgeries in his [place] [facility], but has continued to have problems with bilateral nasal airway obstruction and chronic rhinosinusitis despite maximal medical therapy with systemic antibiotics and steroids. He was found to have a polypoid mass involving his left middle turbinate on nasal endoscopy. CT scan showed sinusitis, septal deviation, and inferior turbinate hypertrophy. The patient presents for the above-mentioned procedure on an outpatient elective basis. DETAILS OF THE PROCEDURE: After informed consent had been obtained from the patient, the patient was wheeled to the operating room, and placed on the operative table in the supine position. Monitors were placed. After induction of general endotracheal anesthesia, the patient was prepped in usual fashion for image-guided bilateral endoscopic sinus surgery. The [employer] headset was placed over the forehead and was registered, verified, and calibrated and used throughout the procedure. Lidocaine and epinephrine pledgets were placed in the bilateral nasal cavities and pressure applied. The left-sided pledgets were first removed. Immediately there was a large polypoid in left middle turbinate which was very abnormal in its appearance. The left middle turbinate was injected with 1% lidocaine with 1:100,000 epinephrine. Of note, the polypoid nature of the middle turbinate completely blocked the left nasal cavity in the middle meatus region. The septum was found to be severely deviated to the right, such that the right-sided endoscopic sinus surgery could not be done prior to a septoplasty. Straight Bull-Cut forceps was then used to take the lateral half of the left middle turbinate out as well as all of the polypoid tissue, which was sent off for permanent pathological assessment. A combination of straight Bull-Cut forceps and powered instrumentation was then used to complete the endoscopic darien bullosa resection. The lateral nasal wall, uncinate process, and remnant middle turbinate were then injected with 1% lidocaine with 1:100,000 epinephrine. A freer elevator was used to medialize the left middle turbinate. An uncinatectomy was then performed using a freer elevator, straight Bull-Cut forceps, backbiting forceps, and powered instrumentation. The maxillary sinus ostium was then identified. This was enlarged anteriorly, inferiorly, and posteriorly using backbiting forceps and powered instrumentation. A complete ethmoidectomy was then performed using powered instrumentation. Using image guidance, a curved frontal sinus suction was then used to cannulate the left frontal sinus. This was removed and a #6 frontal sinus balloon was inserted and inflated to 12 atmospheres of pressure in 2 different locations to dilate the frontal recess tract. The polypoid tissue was then removed using powered instrumentation. The septum was then addressed. The nasal septum was injected with 1% lidocaine with 1:100,000 epinephrine. Lidocaine and epinephrine pledgets were then placed in the bilateral nasal cavities and pressure applied. After allowing adequate time for vasoconstriction, the pledgets were removed and a #15 scalpel was used to make a right Spicer incision through which the right-sided mucoperichondrial mucoperiosteal flap was elevated. Of note, the patient had previous septoplasty and there was only a small amount of cartilage remaining along the nasal dorsum and the caudal septum such that no more resection could be taken in this region. More posteriorly there was deviated portions of cartilage and bone. A #15 scalpel was used to incise the quadrangular cartilage with care to preserve at least a 1.5 cm dorsal and caudal strut and the left-sided mucoperichondrial mucoperiosteal flap was elevated through this cartilaginous incision. A Kuldip swivel knife was then used to remove the deviated portion of the quadrangular cartilage. A Deonte-Ruff forceps was then used to remove the posterior septal bone. After removal, the septum was found to be relatively midline with a mild deviation due to the dorsal deviation involving the 1.5 cm remnant strut. Septal cavity was suctioned. The right Sandro incision was closed with a 4-0 plain gut suture on a Maximo needle in a quilting fashion such that not only was the right Spicer incision closed but also a quilting stitch of the mucoperichondrial mucosal flaps to prevent septal hematoma. A Franco elevator was then used to infracture and subsequently outfracture the inferior turbinates bilaterally. These were injected with 1% lidocaine with 1:100,000 epinephrine. A 2.0 mm turbinate blade using powered instrumentation was then used to perform bilateral inferior turbinoplasties in a submucosal fashion. The right-sided endoscopic sinus surgery was then performed. A right maxillary antrostomy and complete ethmoidectomy were then performed as described on the left hand side. The frontal sinus and sphenoid sinus were left undisturbed. The sinonasal cavities were then suctioned. Stammberger nasal dressing mixed 1:1 with Kenalog 40 mg per 1 mL were then instilled into the bilateral ethmoid sinuses. An orogastric tube was placed and the stomach was suctioned free of air and stomach contents. This marked the end of the case. The patient tolerated the procedure well. There were no apparent complications. The patient was extubated and transferred to the recovery room in stable condition. I attest to the content of the Intraoperative Record and any orders documented therein. Any exception s are noted below.
--- NOTE | 2017-12-28 22:14 | OPERATIVE REPORT ---
DATE OF OPERATION: 12/15/2017 ADDENDUM This is an addendum to an operative dictation. I forgot to dictate the right darien bullosa resection as I complete it add this addendum. Of note, there was a right darien bullosa that was also resected as described on the left hand side. Of note, the right middle turbinate was not as polypoid or hypertrophied as the left hand side but nevertheless an endoscopic right darien bullosa resection was performed using a combination of a sickle knife, straight Bull-Cut forceps, and powered instrumentation. I attest to the content of the Intraoperative Record and any orders documented therein. Any exception s are noted below.
== END | disposition home or self-care (01) ==
LOC: X.SURG 09:38
DX: J32.9 Chronic sinusitis, unspecified (principal); J34.2 Deviated nasal septum; J34.3 Hypertrophy of nasal turbinates; Z90.89 Acquired absence of other organs; F17.200 Nicotine dependence, unspecified, uncomplicated

== ENCOUNTER → 2018-01-10 | Outpatient (CLI) | payer OTHER ==
--- NOTE | 2018-01-10 17:15 | ECHOCARDIOGRAM REPORT ---
*NOTICE TO RECEIVING [employer] This information is strictly Confidential and protected under [place] law. [place] law prohibits you from making any further disclosure of this information unless further disclosure is expressly permitted by the written consent of the person to whom it pertains or is authorized by law. A general authorization for the release of medical or other information is not sufficient for this purpose. Hospital accepts no responsibility if the information is made available to any other person, INCLUDING THE PATIENT. Interpretation Summary * Name: BREEZY PAEZ Study Date: 01/10/2018 01:56 PM BP: 128/71 mmHg * Patient Location: [facility] HR: 70 * : 1985 (M/d/yyyy) Gender: Male Height: 72 in * Age: 32 yrs Ethnicity: CA Weight: 230 lb * Ordering Physician: Natalie Pierce * Referring Physician: Natalie Pierce * Performed By: Imani Calix RDCS * * Reason For Study: Mitral valve prolapse * BSA: 2.3 m2 * -- Conclusions -- * 1. Normal LV size. Normal LV wall thickness. * 2. Normal LV systolic function. LVEF 60-65%. No regional wall motion abnormalities. * 3. Normal RV size and function. * 4. Borderline posterior leaflet mitral valve prolapse. Trace mitral regurgitation. * 5. Normal estimated PA and RA pressures. * 6. Compared with prior study on 01/14/2013: No significant change Procedure Details * A complete two-dimensional transthoracic echocardiogram was performed (2D, M-mode, Doppler and color flow Doppler). Left Ventricle * The left ventricle is grossly normal size. * There is normal left ventricular wall thickness. * Ejection Fraction = 60-65%. * No regional wall motion abnormalities noted. Right Ventricle * The right ventricle is grossly normal size. * The right ventricular systolic function is normal as assessed by tricuspid annular plane systolic excursion (TAPSE) (normal >1.5 cm). Atria * The left atrial size is normal. * Right atrial size is normal. * No ASD detected; PFO is not assessed. Mitral Valve * The mitral valve is grossly normal. * There is borderline mitral valve prolapse. * There is no mitral valve stenosis. * There is trace mitral regurgitation. Tricuspid Valve * The tricuspid valve is not well visualized, but is grossly normal. * There is trace tricuspid regurgitation. Aortic Valve * The aortic valve opens well. * The aortic valve is trileaflet. * No hemodynamically significant valvular aortic stenosis. * There is no significant aortic regurgitation. Pulmonic Valve * The pulmonary valve is inadequately visualized, but the Doppler data is adequate for interpretation. * There is no pulmonic valvular stenosis. * There is no significant pulmonary regurgitation. Great Vessels * The aortic root and proximal ascending aorta are normal sized. Pericardium/Pleural * There is no pericardial effusion. Great Vessels * Normal inferior vena cava size and collapsability with sniff indicates a normal right atrial pressure of 3 mmHg MMode 2D Measurements and Calculations IVSd 0.95 cm LVIDd 4.5 cm LVIDs 3.0 cm LVPWd 1.1 cm IVS/LVPW 0.90 FS 33.7 % EDV(Teich) 91.1 ml ESV(Teich) 34.0 ml EF(Teich) 62.7 % EDV(cubed) 89.4 ml ESV(cubed) 26.1 ml EF(cubed) 70.8 % LV mass(C)d 153.0 grams LV mass(C)dI 67.7 grams/m\S\2 SV(Teich) 57.1 ml SI(Teich) 25.2 ml/m\S\2 SV(cubed) 63.3 ml SI(cubed) 28.0 ml/m\S\2 Ao root diam 2.9 cm Ao root area 6.8 cm\S\2 ACS 1.9 cm LA dimension 3.2 cm asc Aorta Diam 3.1 cm LA/Ao 1.1 LVOT diam 2.0 cm LVOT area 3.1 cm\S\2 LVAd ap4 31.5 cm\S\2 LVLd ap4 7.5 cm EDV(MOD-sp4) 109.3 ml EDV(sp4-el) 112.8 ml LVAs ap4 16.2 cm\S\2 LVLs ap4 5.8 cm ESV(MOD-sp4) 37.6 ml ESV(sp4-el) 38.5 ml EF(MOD-sp4) 65.6 % EF(sp4-el) 65.9 % LVAd ap2 29.0 cm\S\2 LVLd ap2 8.5 cm EDV(MOD-sp2) 82.1 ml EDV(sp2-el) 84.4 ml LVAs ap2 15.3 cm\S\2 LVLs ap2 6.9 cm ESV(MOD-sp2) 29.4 ml ESV(sp2-el) 28.6 ml EF(MOD-sp2) 64.1 % EF(sp2-el) 66.1 % LVLd %diff 11.5 % EDV(MOD-bp) 100.8 ml LVLs %diff 16.0 % ESV(MOD-bp) 35.7 ml EF(MOD-bp) 64.6 % SV(MOD-sp4) 71.8 ml SI(MOD-sp4) 31.7 ml/m\S\2 SV(MOD-sp2) 52.7 ml SI(MOD-sp2) 23.3 ml/m\S\2 SV(MOD-bp) 65.1 ml SI(MOD-bp) 28.8 ml/m\S\2 SV(sp4-el) 74.3 ml SI(sp4-el) 32.9 ml/m\S\2 SV(sp2-el) 55.8 ml SI(sp2-el) 24.7 ml/m\S\2 Doppler Measurements and Calculations MV E max lauro 74.7 cm/sec MV A max lauro 44.1 cm/sec MV E/A 1.7 MV dec time 0.31 sec Ao V2 max 110.3 cm/sec Ao max PG 4.9 mmHg Ao max PG (full) 1.4 mmHg SILVER(V,A) 2.6 cm\S\2 SILVER(V,D) 2.6 cm\S\2 LV V1 max PG 3.5 mmHg LV V1 max 93.6 cm/sec PA V2 max 97.7 cm/sec PA max PG 3.8 mmHg PA acc slope 547.5 cm/sec\S\2 PA acc time 0.14 sec TR max lauro 214.6 cm/sec PA pr(Accel) 17.2 mmHg
== END | disposition home or self-care (01) ==
LOC: C.CPL 13:30
PROVIDERS: ATTEND Family Medicine
DX: I34.1 Nonrheumatic mitral (valve) prolapse (principal)